=== PATIENT | male | born 1985 | race Caucasian/White ===

== ENCOUNTER 2017-07-24 15:57 | Outpatient (RCR) | payer OTHER ==
--- NOTE | 2017-07-09 15:10 | PT INITIAL EVALUATION ---
MEDICAL DIAGNOSIS: chronic neck pain TREATMENT DIAGNOSIS: same DATE OF ONSET: 06/10/04 SUBJECTIVE: Laz Child presents to physical therapy with complaints of neck pain that started approximately 12-13 years ago without a mechanism of injury. He reports that the neck pain started for no apparent reason. Since that time , he has been chronically "popping" it in all directions to help relieve his pain. Furthermore, he reports that the pain has gotten worse over the last 2-3 years. 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 He reports that the pain in his neck becomes worse with sitting (traveling & working), turning his head, and bending. He also reports that the neck pain becomes worse as the day progresses. He reports that his neck pain feels better in the am and with lying. He denies the following symptoms: dizziness, nausea, difficulties swallowing, abnormal gait/upper limbs, night pain, or unexplained weight loss. He reports no imagining, no surgery, or no recent accidents. He denies any numbness or tingling in his B UE's. He denies any pain into the R or L shoulder or into the B UE's. . Pain location is B facet joint on R and L and described as achy, annoying. Pain scale is 0 on a ten point pain scale. REHAB PROBLEM LIST: Increased Pain Decreased ROM Decreased Strength Decreased Endurance Decreased Function PREVIOUS MEDICAL HISTORY: See EMR OCCUPATION: OBJECTIVE: Posture: He demonstrated minimal B rounded shoulders and protruded forward head. ROM: Cervical AROM: protrusion: NIL with muscular end feel. flexion: NIL with muscular end feel. retraction: minimal restriction with painful end feel. extension: NIL with muscular end feel. lateral flexion R: minimal restriction with pinching type end feel. lateral flexion L: moderate restriction with muscular end feel. rotation R: minimal restriction with tense end feel. rotation L: minimal restriction with painful end feel. Palpation: TTP: C6-7 facet joint more R side than L Special Tests: Repeated retraction: stretch symptoms during testing and better symptoms after testing along with improved cervical AROM with improved end feel. Repeated RET EXT: stretch symptoms during testing and better symptoms after testing along with improved cervical AROM with improved end feel. Repeated flexion: stretch symptoms during testing and worse symptoms after testing (also his pain peripheralized to his R shoulder blade). Mobility: Independent ASSESSMENT: Laz will benefit from skilled physical therapy addressing the listed impairments to improve function and return to prior level of function. Based on the signs and symptoms, he demonstrated a provisional classification of derangement that responded well to extension based principles, therefore, his prognosis is excellent if his specific exercise and posture correct is performed at home. Short Term Goals 2 weeks: Pt will demonstrate centralized neck pain to improve function and QOL. 4 weeks: Pt will demonstrate abolished neck pain and return to full cervical AROM in all directions to improve function and QOL. Patient's Goals reduce neck pain PLAN: Patient to be seen for Manual Therapy/STM/MET Strengthening/condition Range of Motion Spinal Stabilization Work Hardening/Cond Stretching Neuromuscular Re-ed Closed Chain Program Posture/Body mechanics Home Exercise Program Therapeutic Activities 2x/Week for 4 Weeks If you have any questions, comments, or concerns about this report or plan, please contact me at . Thank you, Deshawn Tamayo, PT, DPT MTDD
[~2017-07-24 15:57] MED LIST: AMPH10CA17 PO
--- NOTE | 2017-07-25 14:29 | PT PLAN OF CARE ---
Physician: Whitney Prado, CONFECTION[employer] [facility]-THERAPY ASSISTANT-C Patient is being seen: 1-2x/week Therapist: Deshawn Tamayo, PT, DPT Medical Diagnosis: chronic neck pain Treatment Diagnosis: same Date of Onset: 06/10/04 Date of Initial Evaluation: 07/09/17 Date patient was last seen: 07/24/17 Number of treatments: 5 Number of cancellations/No shows: 0 INTERVENTIONS: Manual Therapy/STM/MET Strengthening/condition Range of Motion Spinal Stabilization Work Hardening/Cond Stretching Neuromuscular Re-ed Closed Chain Program Posture/Body mechanics Home Exercise Program Therapeutic Activities GOALS: 2 weeks: Pt will demonstrate centralized neck pain to improve function and QOL. MET 4 weeks: Pt will demonstrate abolished neck pain and return to full cervical AROM in all directions to improve function and QOL. MET PATIENT'S GOAL: reduce neck pain Status of Patient's Goals: MET Patient Compliance: Excellent Prognosis: Excellent Reasons for continuing therapy: This is a discharge note for Laz Child. He reports that he is doing really well. He reports that he feels like his neck is approximately 95 to 98 percent better. He denies any pain. He reports that he has been performing his current specific exercise with good results. He reports that he feels like his cervical AROM feels equal in all directions. He demonstrated the following improvements: increased cervcial AROM in all directions, abolished cervical neck pain, independent with his specific exercise , and independent with his recovery of function ther ex. He has met all of his goals. As a result, he will be discharged from PT to [facility]. ROM: Cervical AROM: protrusion: NIL with muscular end feel. flexion: NIL with muscular end feel. retraction: NIL with normal end feel. extension: NIL with muscular end feel. lateral flexion R: NIL with normal end feel. lateral flexion L: NIL with muscular end feel. rotation R: NIL with normal end feel. rotation L : NIL with normal end feel. Strength: Palpation: No longer TTP Mobility: Independent If you have any questions, please contact me at [phone]. Thank you, Deshawn Tamayo, PT, DPT [facility]
== END 2017-07-24 18:00 | disposition home or self-care (01) ==
LOC: PT 15:57
PROVIDERS: ATTEND Nurse Practitioner Family
DX: M54.2 Cervicalgia (principal)
CPT/HCPCS: 97161